=== PATIENT | female | born 2000 | race African-American/Black ===

== ENCOUNTER 2021-01-20 19:30 | Emergency (ER) | payer OTHER ==
[~2021-01-20] VITALS: Ht 175.3 cm; Wt 73.0 kg
[2021-01-20] MEDS ORDERED: TETANUS, DIPHTHERIA, PERTUSSIS VAC/PF 0.5ML (>7YR OLD) IM ONE (20:30)
[2021-01-20] MEDS ORDERED: ACETAMINOPHEN 325MG TABLET PO ONE (20:30)
[2021-01-20] MEDS ORDERED: BO1 TP (22:09)
[2021-01-20] MEDS ORDERED: IBUP-2028 MT (22:09)
[2021-01-20 22:20] VITALS: BP 132/88
== END 2021-01-20 22:21 | disposition home or self-care (01) ==
LOC: ER 19:30
DX: S09.8XXA Other specified injuries of head, initial encounter (principal); S00.01XA Abrasion of scalp, initial encounter; V43.52XA Car driver injured in collision with other type car in traffic accident, initial encounter; Y93.89 Activity, other specified; Y92.410 Unspecified street and highway as the place of occurrence of the external cause
CPT/HCPCS: 70450; 70486; 73562; 81025; 90715; 93005; 99285; A4217; Z7610